=== PATIENT | female | born 1960 | race African-American/Black ===

== ENCOUNTER 2019-05-18 00:45 | Emergency (ER) | payer OTHER ==
[~2019-05-18] VITALS: Ht 175.3 cm; Wt 109.1 kg
[2019-05-18] MEDS ORDERED: LEVALBUTEROL HCL 0.63 MG/3 ML NEB SOLUTION NEB ONE (01:30)
[2019-05-18] MEDS ORDERED: 0.9% SODIUM CHLORIDE 5 ML NEB SOLUTION NEB ONE (01:39)
[2019-05-18 02:26] VITALS: BP 110/59
== END 2019-05-18 03:00 | disposition home or self-care (01) ==
LOC: EMS 00:48
DX: J70.5 Respiratory conditions due to smoke inhalation (principal); I10 Essential (primary) hypertension; F12.90 Cannabis use, unspecified, uncomplicated
CPT/HCPCS: 94640